=== PATIENT | female | born 1985 ===

== ENCOUNTER → 2024-08-22 | Outpatient (CLI) | payer BC, OTHER ==
[2024-08-24 07:23] LABS: TESTOSTERONE,PERCENTAGE FREE 1.2 %
== END | disposition home or self-care (01) ==
LOC: LAB SHORT 13:56 → LAB 13:56
PROVIDERS: Registered Nurse Community Health
DX: N97.9 Female infertility, unspecified (principal)
CPT/HCPCS: 83036; 84270; 84402; 84403; 84443